=== PATIENT | female | born 1935 | race Hispanic/Latino ===

== ENCOUNTER 2018-07-09 08:31 | Day surgery (SDC) | payer MEDICARE ==
[2016-02-19 14:37] VITALS: BMI 23.1
[2018-07-09] MEDS ORDERED: cefTRIAXone 1 gm 1 GM/100 ML BAG IVPB ONE (10:23)
[2018-07-09] MEDS ORDERED: Iohexol 240 (50 ml) ONE (10:23)
[2018-07-09] MEDS ORDERED: Lidocaine 2% Jelly (Uro-Jet) ONE (10:24)
--- NOTE | 2018-07-09 11:19 | PCM.SURG1 ---
Surgeon's Initial Post Op Note - Surgeon's Notes Surgeon: Frankie Escobar [employer] Boning Machine Feeder: none Type of Anesthesia: Local Pre-Operative Diagnosis: microhematuria Operative Findings: cystitis. R hydronephrosis Post-Operative Diagnosis: same Operation Performed: cysto. bilat rtg pyelogram. pelvic exam Specimen/Specimens Removed: urine Estimated Blood Loss: EBL {In ML}: 0 Blood Products Given: N/A Drains Used: No Drains Post-Op Condition: Good Date of Surgery/Procedure: 07/09/18 Time of Surgery/Procedure:
[2018-07-09 11:35] VITALS: RESP 16; TEMP 97.6; O2SAT 97
[2018-07-09 13:00] VITALS: BP 153/79; PULSE 90
--- NOTE | 2018-07-09 17:08 | RAD ---
Date of service: 07/09/2018 PROCEDURE: Intraoperative Fluoroscopy. HISTORY: MICRO HEMATURIA FINDINGS: Fluoroscopic assistance was provided for bilateral retrograde. Please refer to the operative report from Dr. JESUS, [place]. Total fluoroscopic time (continuous mode) utilized during the procedure 25.5 seconds. Dose report: DLP [id number] (mGy/m2)
--- NOTE | 2018-07-10 14:30 | RAD ---
Date of service: 07/09/2018 HISTORY: MICRO HEMATURIA COMPARISON: High FINDINGS: BOWEL: Normal. No obstruction. No free air. 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 OTHER FINDINGS: Extensive costochondral calcifications are present limiting evaluation for renal calculi. Follow-up CT scan will likely be required for further evaluation of calculi if necessary IMPRESSION: Extensive costochondral calcifications limit evaluation for renal calculi. Follow-up CT scan will likely be required for further evaluation of calculi if necessary.
--- NOTE | 2018-07-12 04:29 | OP ---
PROCEDURE DATE: 07/09/2018 UROLOGY OPERATIVE REPORT PREOPERATIVE DIAGNOSIS: Microhematuria. POSTOPERATIVE DIAGNOSES: Microhematuria, cystitis, mild right hydronephrosis. PROCEDURES: Cystoscopy, bilateral retrograde pyelogram, examination under anesthesia. Procedure was performed under video endoscopic control as well as under fluoroscopic control. Procedure was performed under local anesthesia. DESCRIPTION OF PROCEDURE: The patient was placed in lithotomy position. The genitalia were prepped and draped sterilely. Lidocaine jelly was instilled previously. Perioperative antibiotics were administered. A 22-[place] cystoscope sheath was introduced with obturator. Urethra and bladder were inspected with 30-degree and 70-degree lenses. FINDINGS: The urethral caliber was noted to be normal. There was mild inflammation of the bladder neck. There was mild inflammation of the bladder mucosa. There was [id number]-ci-[id number] bladder trabeculation. There was no bladder tumor. There was no bladder stone. The ureteral orifices were normal in position and shape. There were no focal mucosal lesions within the bladder. Occlusive tip retrograde ureteral pyelogram was performed. Iodinated contrast dye was instilled via cone-tip catheter into each ureteral orifice. The ureters and kidneys were viewed sequentially with fluoroscopy. Retrograde pyelogram demonstrated no evidence of filling defect or obstruction within the ureters or collecting systems. There was [id number] dilation of the right ureter. At first, there was incomplete filling above the distal level. There was an impression of possible obstruction or filling defect at the level of the sacrum. However, this area was filled out well with contrast. There was mild fullness of the renal pelvis and calyces on the right more than the left. However, there was good drainage from the right kidney on the post-drainage film. Repeat retrograde ureteral pyelogram on the right side was performed as well and confirmed the above findings. The retrograde ureteral pyelogram on the left side was with normal caliber without evidence of filling defect or obstruction. The bladder was re-inspected with a 70-degree lens to confirm the above findings. The bladder was then drained. Cystoscope and sheath were removed. Exam under anesthesia was performed. There was no abnormal pelvic mass fixation or induration. The patient tolerated the procedure without complication. The patient was returned to supine position after the bladder was drained and cystoscope and sheath were removed. Stacy MD Luz
== END 2018-07-09 12:15 | disposition home or self-care (01) ==
LOC: C.SDS 08:31
PROVIDERS: ATTEND Urology
DX: R31.29 Other microscopic hematuria (principal); R32 Unspecified urinary incontinence
CPT/HCPCS: 52005; 74018; 87086; J0696; Q9966